=== PATIENT | male | born 1970 | race Caucasian/White ===

== ENCOUNTER 2022-02-01 20:01 | Emergency (ER) | payer MEDICAID ==
[~2022-02-01] VITALS: Ht 188 cm; Wt 69.8 kg
--- NOTE | 2022-02-01 20:29 | NUR ---
PT NOT IN LOBBY
[2022-02-01] MEDS ORDERED: sulfamethoxazole/trimethoprim DS (800/160mg) tablet PO ONE (22:35)
[2022-02-01] MEDS ORDERED: bacitracin 15gm ointment TP ONE (22:35)
[2022-02-01] MEDS ORDERED: SULF1TAB49 PO (23:36)
[2022-02-01 23:59] VITALS: BP 136/79
== END 2022-02-02 00:01 | disposition home or self-care (01) ==
LOC: ER 20:02
DX: L03.116 Cellulitis of left lower limb (principal); F15.90 Other stimulant use, unspecified, uncomplicated
CPT/HCPCS: 73610; 99283

== ENCOUNTER 2022-02-14 13:26 | Emergency (ER) | payer MEDICAID ==
[~2022-02-14] VITALS: Ht 188 cm; Wt 70.5 kg
[~2022-02-14 13:26] MED LIST: LIDOcaine 1% W/epiNEPHrine 1:100,000 20ml vial ONE
[2022-02-14 13:32] VITALS: BP 122/87
[2022-02-14] MEDS ORDERED: bacitracin 15gm ointment TP ONE (14:05)
[2022-02-14] MEDS ORDERED: acetaminophen 325mg tablet PO ONE (14:50)
== END 2022-02-14 15:17 | disposition home or self-care (01) ==
LOC: ER 13:27
DX: S01.01XA Laceration without foreign body of scalp, initial encounter (principal); F15.90 Other stimulant use, unspecified, uncomplicated; Z88.0 Allergy status to penicillin; W22.8XXA Striking against or struck by other objects, initial encounter; Y93.89 Activity, other specified; Y92.89 Other specified places as the place of occurrence of the external cause; Y99.8 Other external cause status
CPT/HCPCS: 12002; 99283; J3490

== ENCOUNTER 2022-03-11 23:21 | Emergency (ER) | payer MEDICAID ==
[~2022-03-11] VITALS: Ht 188 cm; Wt 67.0 kg
[2022-03-12] MEDS ORDERED: clindamycin 150mg capsule PO ONE
[2022-03-12] MEDS ORDERED: CLIN300C71 PO (00:01)
[2022-03-12 00:17] VITALS: BP 137/88
== END 2022-03-12 00:22 | disposition home or self-care (01) ==
LOC: ER 23:21
DX: S01.01XD Laceration without foreign body of scalp, subsequent encounter (principal); L03.119 Cellulitis of unspecified part of limb; F15.90 Other stimulant use, unspecified, uncomplicated; Z48.02 Encounter for removal of sutures; Z59.00 Homelessness unspecified; Z79.2 Long term (current) use of antibiotics; X58.XXXD Exposure to other specified factors, subsequent encounter
CPT/HCPCS: 99283

== ENCOUNTER 2022-03-29 17:26 | Emergency (ER) | payer MEDICAID ==
[~2022-03-29] VITALS: Ht 188 cm; Wt 68.2 kg
[2022-03-29 17:54] VITALS: BP 122/91
--- NOTE | 2022-03-29 18:44 | NUR ---
ULTRASOUND PAGED AT [id number]
[2022-03-29 19:07] LABS: BASOPHILS % (AUTO) 0.5 % (0-1); EOSINOPHILS # (AUTO) 0.2 X10'3 (0-0.9); EOSINOPHILS % (AUTO) 3.4 % (0-6); HEMATOCRIT 42.5 % (42.0-52.0); LYMPHOCYTES # (AUTO) 1.7 X10'3 (1.1-4.8); LYMPHOCYTES % (AUTO) 23.9 % (21-51); MEAN CORPUSCULAR HEMOGLOBIN 29.3 PG (27.0-31.0); MEAN CORPUSCULAR HGB CONC 32.8 g/dL (33.0-36.5); MEAN CORPUSCULAR VOLUME 89.3 FL (78-98); MEAN PLATELET VOLUME 7.2 FL (7.4-10.4); MONOCYTES # (AUTO) 0.6 X10'3 (0-0.9); NEUTROPHILS # (AUTO) 4.5 X10'3 (1.8-7.7); NEUTROPHILS % (AUTO) 64.2 % (42-75); PLATELET COUNT 265 X10'3 (140-440); RED BLOOD COUNT 4.76 X10'6 (4.70-6.10); RED CELL DISTRIBUTION WIDTH 14.7 % (11.5-14.5)
--- NOTE | 2022-03-29 19:18 | NUR ---
Ultrasound at bedside.
[2022-03-29 19:19] LABS: ALANINE AMINOTRANSFERASE 55 U/L (12-78); ALBUMIN 3.5 G/DL (3.4-5.0); ALBUMIN/GLOBULIN RATIO 0.8 (1.1-1.5); ALKALINE PHOSPHATASE 64 IU/L (46-116); ANION GAP 6 (8-16); ASPARTATE AMINO TRANSFERASE 30 U/L (10-37); BILIRUBIN,TOTAL 0.3 MG/DL (0.1-1.0); BLOOD UREA NITROGEN 22 MG/DL (7-18); BUN/CREATININE RATIO 27.8 (5.4-32.0); CALCIUM 8.7 MG/DL (8.5-10.1); CHLORIDE 105 MMOL/L (99-107); CREATININE 0.79 MG/DL (0.60-1.10); GLUCOSE 113 MG/DL (70-104); LIPASE 96 U/L (73-393); SODIUM 139 MMOL/L (135-145); TOTAL CARBON DIOXIDE 27.8 MMOL/L (24-32); TOTAL PROTEIN 7.8 G/DL (6.4-8.2); eGFR > 90 ML/MIN
[2022-03-29] MEDS ORDERED: IODIXANOL 270 MG/ML INFUS..BTL 100ML inj. IV ONE (19:27)
[2022-03-29] MEDS ORDERED: ondansetron 4mg rapidly disintigrating tab PO ONE (19:35)
[2022-03-29] MEDS ORDERED: ketorolac tromethamine 15mg/ml inj. IM ONE (19:35)
[2022-03-29] MEDS ORDERED: sulfamethoxazole/trimethoprim DS (800/160mg) tablet PO ONE (19:35)
[2022-03-29] MEDS ORDERED: HYDROcodone/acetaminophen 5mg/325mg tablet PO ONE (19:35)
[2022-03-29] MEDS ORDERED: ONDA4TAB12 PO (20:19)
[2022-03-29] MEDS ORDERED: HYDR-3965 PO (20:19)
[2022-03-29] MEDS ORDERED: LEVO500T90 PO (20:19)
[2022-03-29 20:27] LABS: CLARITY,URINE CLEAR (Clear); COLOR,URINE YELLOW (Yellow); GLUCOSE, URINE NEGATIVE (Neg); KETONES,URINE NEGATIVE (Neg); LEUKOCYTE ESTERASE ,URINE NEGATIVE (Neg); NITRITES, URINE NEGATIVE (Neg); OCCULT BLOOD,URINE NEGATIVE (Neg); PROTEIN,URINE NEGATIVE (Neg); UROBILINOGEN,URINE 0.2 E.U/dL (0.2-1.0)
[2022-03-29 20:36] LABS: UA COLLECTION TYPE CLN CATCH MIDSTREAM
== END 2022-03-29 20:31 | disposition home or self-care (01) ==
LOC: ER 17:27
DX: N45.1 Epididymitis (principal); F15.90 Other stimulant use, unspecified, uncomplicated; Z59.00 Homelessness unspecified; Z79.899 Other long term (current) drug therapy
CPT/HCPCS: 36415; 74177; 76870; 80053; 81003; 83690; 85025; 93976; 96372; 99285; J1885; Q9967

== ENCOUNTER 2023-01-10 20:43 | Emergency (ER) | payer MEDICAID ==
[~2023-01-10] VITALS: Ht 188 cm; Wt 68.0 kg
[~2023-01-10 20:43] MED LIST changes: -LIDOcaine 1% W/epiNEPHrine 1:100,000 20ml vial ONE; +ONDA4TAB12 PO
[2023-01-11] MEDS ORDERED: DOXYCYCLINE 100MG CAPSULE PO STA (00:20)
[2023-01-11] MEDS ORDERED: bacitracin 15gm ointment TP ONE (00:20)
[2023-01-11] MEDS ORDERED: DOXY-1 PO (00:22)
[2023-01-11 00:59] VITALS: BP 135/75
== END 2023-01-11 01:00 | disposition home or self-care (01) ==
LOC: ER 20:44
DX: L03.113 Cellulitis of right upper limb (principal); F15.10 Other stimulant abuse, uncomplicated; Z59.00 Homelessness unspecified; Z88.0 Allergy status to penicillin; Z79.899 Other long term (current) drug therapy
CPT/HCPCS: 99283

== ENCOUNTER 2023-06-25 17:25 | Emergency (ER) | payer MEDICAID ==
[~2023-06-25] VITALS: Ht 188 cm; Wt 74.6 kg
[2023-06-25 17:30] VITALS: BP 109/61; PULSE 76; RESP 16; TEMP 98.5; O2SAT 99
[2023-06-25] MEDS ORDERED: SULF1TAB49 PO (20:05)
[2023-06-25] MEDS ORDERED: IBUP-1984 PO (20:05)
== END 2023-06-25 20:14 | disposition home or self-care (01) ==
LOC: ER 17:25
DX: M25.551 Pain in right hip (principal); M54.50 Low back pain, unspecified; M70.71 Other bursitis of hip, right hip; R22.41 Localized swelling, mass and lump, right lower limb; Z86.14 Personal history of Methicillin resistant Staphylococcus aureus infection; F15.90 Other stimulant use, unspecified, uncomplicated; Z59.00 Homelessness unspecified; Z79.899 Other long term (current) drug therapy
CPT/HCPCS: 73502; 99283

== ENCOUNTER 2025-06-17 20:42 | Emergency (ER) | payer MEDICAID ==
[~2025-06-17] VITALS: Ht 188 cm; Wt 74.2 kg
[~2025-06-17 20:42] MED LIST changes: +ONDA-243 PO; -ONDA4TAB12 PO
[2025-06-17 21:27] VITALS: TEMP 98.6
--- NOTE | 2025-06-18 00:30 | Physician Documentation ---
History of Present Illness ~ Chief Complaint: Abscess Stated Complaint: LEG PAIN Time Seen by MD: 00:28 Primary Medical Doctor: ALVIN CHANEL [facility] Patient presents to the emergency room for evaluation of left lower extremity pain and swelling onset three days ago. He states it started with an abrasion he believes it may be infected. He is unsure of his tetanus. Tetanus Within 5 Years: Yes Medication Reconciliation Allergies: Coded Allergies: No Known Allergies (Unverified , 06/17/25) Scheduled ONDANSETRON ODT 4mg tablet (Ondansetron Odt), 1 TABLET PO Q6H Past Medical History Past Medical History: MRSA Abscess Past Surgical History: noncontributory Drug Use: methamphetamine Lives In: Homeless Review of Systems ROS All review of systems negative except as per HPI Physical Exam Vital Signs: Temperature: 98.6, Source: Temporal, Heart Rate: 76, Respiratory Rate: 16, BP: 134/85, Pulse Oximetry: 98, Weight: 74.200 Physical Exam General: Patient is awake, alert, oriented x4 in no acute distress Head: Normocephalic and atraumatic. Eyes: Conjunctival normal. EOMI. PERRL. ENT: Mucous membranes moist. Neck: Supple, trachea is midline. Chest: Clear to auscultation bilaterally without rales, rhonchi, or wheezes. There is no accessory muscle use or retractions. Cardiac: RRR without murmurs, gallops, or rubs. Extremities: Cellulitis with an abrasion noted to left lower extremity from just below the knee to proximal ankle. Progress Results/Orders Results/Orders Orders - BHANU HICKS MD Naproxen Tablet (Naprosyn Tablet) (06/18/25 00:35) Ondansetron Disint. Tablet (Zofran Odt T (06/18/25 00:35) Sulfamethox/Trimetho. Ds Tab (Septra Ds (06/18/25 00:35) Vital Signs 06/17/25 06/18/25 21:27 00:07 Temp 98.6 Pulse 104 76 Resp 15 16 B/P (MAP) 151/88 134/85 (101) Pulse Ox 99 98 Medical Decision Making Findings Patient presented to the emergency room for evaluation of left lower extremity as per HPI. Differentials include but are not limited to cellulitis, abscess, DVT, necrotizing fasciitis. Symptoms history and physical exam consistent with cellulitis and we will treat as such. Departure Disposition: HOME / SELF CARE / HOMELESS Impression: Primary Impression: Cellulitis Condition: Stable Discharge Instructions: Cellulitis, Adult, [id number] Referrals: NO PRIMARY CARE PROVIDER (PCP) Prescriptions Sulfamethoxazole/Trimethoprim (Bactrim Ds Tablet) 800 Mg-160 Mg Tablet 1 TAB PO Q12H for 10 Days, #20 TAB Prov: BHANU HICKS MD 06/18/25 Education Educated: Patient Educated regarding: diagnosis, treatment, need for follow up Signature Scribe Signature: No scribe Attestation: The note accurately reflects work and decisions made by me.Bhanu Hicks MD 06/18/25 00:38 BHANU HICKS MD Jun 18, 2025 00:30
[2025-06-18] MEDS ORDERED: SULF1TAB49 PO (00:37)
[2025-06-18 01:02] VITALS: BP 128/72; PULSE 72; RESP 16; O2SAT 98
[2025-06-18] MEDS: sulfamethoxazole/trimethoprim DS (800/160mg) tablet PO ONE (01:07)
[2025-06-18] MEDS: ondansetron 4mg rapidly disintigrating tab PO ONE (01:07)
[2025-06-18] MEDS: TETanus/Pertussis (Acell)/Diphther VAC/PF (Tdap-Adult) 0.5ml syringe IMVAC ONE (01:08)
[2025-06-19] MEDS ORDERED: IBUP-864 PO (10:45)
[2025-06-19] MEDS ORDERED: SULF1TAB49 PO (10:45)
== END 2025-06-18 01:11 | disposition home or self-care (01) ==
LOC: ER 20:42
DX: L03.116 Cellulitis of left lower limb (principal)
CPT/HCPCS: 90471; 90715; 99284

== ENCOUNTER 2025-06-19 09:58 | Emergency (ER) | payer MEDICAID ==
[~2025-06-19] VITALS: Ht 172.7 cm; Wt 72.7 kg
[~2025-06-19 09:58] MED LIST changes: +SULF1TAB49 PO
[2025-06-19 10:03] VITALS: BP 118/73; PULSE 103; RESP 17; O2SAT 97
[2025-06-19] MEDS ORDERED: IBUP-864 PO (10:45)
[2025-06-19] MEDS ORDERED: SULF1TAB49 PO (10:45)
--- NOTE | 2025-06-19 10:46 | Physician Documentation ---
History of Present Illness ~ Chief Complaint: Wound Stated Complaint: CELLULITIS Time Seen by MD: 10:10 Primary Medical Doctor: ALVIN CHANEL HPI 54-year-old male brought in by ambulance with continued cellulitis which was evaluated and treated on June 17 and was unable to shredder picker his prescription. Patient states the cellulitis is worsening and he needs his antibiotics. No ot her acute concerns Tetanus within 5 years?: Yes Medication Reconciliation Allergies: Coded Allergies: No Known Allergies (Unverified , 06/17/25) Scheduled Ibuprofen (Ibu), 1 TAB PO Q8H ONDANSETRON ODT 4mg tablet (Ondansetron Odt), 1 TABLET PO Q6H Sulfamethoxazole/Trimethoprim (Bactrim Ds Tablet), 1 TAB PO Q12H Sulfamethoxazole/Trimethoprim (Bactrim Ds Tablet), 1 TAB PO Q12H Past Medical History Past Medical History: MRSA Abscess Past Surgical History: noncontributory Drug Use: methamphetamine Lives In: Homeless Review of Systems All Other Systems at this time: Reviewed and Negative Integumentary: Reports: see HPI Physical Exam Vital Signs: Temperature: 98.2, Source: Temporal, Heart Rate: 103, Respiratory Rate: 17, BP: 118/73, Pulse Oximetry: 97, Weight: 72.730 General Appearance: alert, WD/WN, no apparent distress Cardiovascular: normal peripheral pulses, regular rate, rhythm, no edema Respiratory: lungs clear, normal breath sounds, no respiratory distress Chest: no accessory muscle use, chest non-tender Wound Site : Location: Left lower extremity Comment Left lower extremity with erythema and warmth compartments soft distal CMS intact Progress Results/Orders Results/Orders Completed Orders - KENDY PICKETT NP Sulfamethox/Trimetho. Ds Tab (Junra Ds (06/19/25 10:50) Medications Received in ER Medications (Trade) Dose Ordered Sig/Abdiel Route PRN Reason Start Time Stop Time Status Last Admin Dose Admin (Septra DS tab) 2 tab ONCE ONCE PO 06/19/25 10:50 06/19/25 10:51 DC 06/19/25 10:55 2 TAB Vital Signs 06/19/25 06/19/25 10:03 11:02 Temp 98.2 98.2 Pulse 103 Resp 17 B/P (MAP) 118/73 Pulse Ox 97 Medical Decision Making Findings And was unable to shredder picker antibiotics at previous ER visit a dose was given hair and represcribed at a closer pharmacy Departure Time of Disposition: 10:44 Disposition: 01 HOME / SELF CARE / HOMELESS Impression: Primary Impression: Cellulitis Condition: Stable Discharge Instructions: Cellulitis, Adult, [id number] Additional Instructions: Take antibiotics as prescribed this antibiotic was sent to the [facility] on [address]. Follow up with primary care or the [facility] Referrals: NO PRIMARY CARE PROVIDER (PCP) Prescriptions Ibuprofen (Ibu) 800 Mg Tablet 1 TAB PO Q8H for 7 Days, #21 TAB 0 Refills Prov: KENDY PICKETT NP 06/19/25 Sulfamethoxazole/Trimethoprim (Bactrim Ds Tablet) 800 Mg-160 Mg Tablet 1 TAB PO Q12H for 10 Days, #20 TAB Prov: KENDY PICKETT NP 06/19/25 Education Educated: Patient Educated regarding: diagnosis, treatment, need for follow up Signature Scribe Signature: No Scribe Attestation: The note accurately reflects work and decisions made by me.Kendy MERIDA 06/19/25 10:45 KENDY PCIKETT NP Jun 19, 2025 10:46
[2025-06-19] MEDS: sulfamethoxazole/trimethoprim DS (800/160mg) tablet PO ONE (10:55)
[2025-06-19 11:02] VITALS: TEMP 98.2
== END 2025-06-19 11:03 | disposition home or self-care (01) ==
LOC: ER 09:58
DX: L03.115 Cellulitis of right lower limb (principal); F15.90 Other stimulant use, unspecified, uncomplicated
CPT/HCPCS: 99283

== ENCOUNTER 2025-06-22 10:01 | Inpatient (IN) | payer MEDICAID ==
[~2025-06-22] VITALS: Ht 177.8 cm; Wt 84.1 kg
[~2025-06-22 10:01] MED LIST changes: +IBUP-864 PO
--- NOTE | 2025-06-22 11:13 | ELECTROCARDIOGRAPH REPORT ---
[facility] Test Date: 2025-06-22 Test Time: 11:11:38 Pat Name: HANSA DAVIS Department: [facility]-ER Patient ID: [facility]-[id number] Room: Gender: M Contract Admin: : 1970 Requested By: TONY PINEDA Order Number: [id number] Reading MD: Measurements Intervals [place] Rate: 73 P: 90 FL: 152 QRS: 70 QRSD: 97 T: 79 QT: 391 QTc: 431 Interpretive Statements Sinus rhythm Consider left atrial enlargement Probable anteroseptal infarct, old Please click the below link to view image of tracing.
--- NOTE | 2025-06-22 11:29 | RADIOLOGY REPORT ---
EXAM: DI CHEST,SINGLE VIEW Indication: SEPSIS Technique: Single frontal view of the chest was obtained Comparison: None FINDINGS: Lines and Tubes: None Lungs: No focal consolidation. Pleura: No effusion. No pneumothorax. Cardiomediastinal contours: Unremarkable. Atherosclerotic vascular calcifications of the thoracic ao rta are noted. Bones: No acute osseous abnormality. IMPRESSION: No acute cardiopulmonary disease.
[2025-06-22 11:44] LABS: MEAN PLATELET VOLUME 7.1 FL (7.4-10.4); RED CELL DISTRIBUTION WIDTH 14.9 % (11.5-14.5)
[2025-06-22] MEDS: normal saline 1000ML IV soln IVB ONE (11:44)
[2025-06-22] MEDS: piperacillin/tazo 3.375gm/50ml 50 ML IV ONE (11:45)
--- NOTE | 2025-06-22 12:10 | Physician Documentation ---
History of Present Illness ~ Chief Complaint: Leg Pain Stated Complaint: L LEG PAIN Time Seen by MD: 10:58 Primary Medical Doctor: ALVIN CHANEL Source: patient Mode of Arrival: Ambulatory Exam Limitations: no limitations HPI Chief Complaint: Left leg pain and swelling Caveat: None Independent Historians: None History of Present Illness: Patient is a 54-year-old man who has had a couple of ER visits this last week for an infected left leg. Patient returns for the 3rd time. Patient has been on Bactrim. Patient's pain is 7/10. Patient is unable to describe the pain. Pain is worse with walking and touch. Review of systems: All systems were reviewed and are negative except for what is indicated in the history of present illness. Past Medical History: MRSA abscess and cellulitis Past Surgical History: None Social History: Medications: Reviewed as documented Nursing Notes Allergies: Reviewed as documented in Nursing Notes Mervat cardosoin 5 years: Yes Medication Reconciliation Allergies: Coded Allergies: No Known Allergies (Unverified , 06/22/25) Scheduled Ibuprofen (Ibu), 1 TAB PO Q8H ONDANSETRON ODT 4mg tablet (Ondansetron Odt), 1 TABLET PO Q6H Sulfamethoxazole/Trimethoprim (Bactrim Ds Tablet), 1 TAB PO Q12H Sulfamethoxazole/Trimethoprim (Bactrim Ds Tablet), 1 TAB PO Q12H Past Medical History Past Medical History: MRSA Abscess Past Surgical History: noncontributory Drug Use: methamphetamine Lives In: Homeless Review of Systems All Other Systems at this time: Reviewed and Negative ROS Patient denies any other acute symptoms other than above. All other systems are negative Physical Exam Vital Signs: RN Vital Signs have been reviewed: Yes, Temperature: 98.1, Source: Temporal, Heart Rate: 83, Respiratory Rate: 19, BP: 118/66, Pulse Oximetry: 99, Weight: 84.090 Oxygen Flow Rate: 0 Physical Exam General Appearance: Mild distress HEENT: Normal OP, moist oral mucosa, PERRL, EOMI Neck: supple, normal ROM, trachea midline Pulmonary: No respiratory distress, CTA, BS equal Cardiac: RRR, no murmur, rub or gallop, GI: nondistended, soft, nontender, normal bowel sounds, no guarding, no rebound Extremities: Left leg is circumferentially swollen violaceous red and weeping, erythema and hot to touch, ankle bracelet on the left ankle Skin: intact, dry, warm, no rashes Neuro: AAOx3, speech is clear, no focal motor weakness Psych: normal affect, good eye contact, no apparent hallucination, normal speech Progress Results/Orders Results/Orders Orders - TONY PINEDA MD Urinalysis, Cult If Indicated (06/22/25 11:06) Culture Blood (06/22/25 11:06) Chest,Single View (06/22/25 11:06) Drug Screen, Urine (06/22/25 11:06) Page Hospitalist (06/22/25 12:08) Fill Out Med Reconciliation (06/22/25 12:08) Completed Orders - TONY PINEDA MD Electrocardiogram (06/22/25 11:06) Cbc/Diff (06/22/25 11:06) MG (06/22/25 11:06) Chest,Single View (06/22/25 11:06) Procalcitonin (06/22/25 11:06) Piperacillin/Tazo 3.375gm/50ml (Zosyn 3. (06/22/25 11:10) Lacticsepsis (06/22/25 11:06) Ethanol (06/22/25 11:06) Normal Saline 1000ml (0.9% Sodium Chlori (06/22/25 11:10) CMP (06/22/25 11:07) PBNP (06/22/25 11:33) Medications Received in ER Medications (Trade) Dose Ordered Sig/Abdiel Route PRN Reason Start Time Stop Time Status Last Admin Dose Admin Piperacillin/ Tazobactam/ Dextrose 50 ml @ 100 mls/hr ONCE ONCE IV 06/22/25 11:10 06/22/25 11:39 DC 06/22/25 11:45 100 MLS/HR (0.9% sodium chloride (NS) 1000ml IV soln) 1,000 ml ONCE ONCE IVB 06/22/25 11:10 06/22/25 11:11 DC 06/22/25 11:44 1,000 ML Sodium Chloride 1,000 ml @ 100 mls/hr Q10H IV 06/22/25 12:45 06/22/25 13:12 100 MLS/HR Vital Signs 06/22/25 06/22/2525 10:03 10:25 11:54 Temp 98.1 Pulse 89 83 Resp 16 16 19 B/P (MAP) 141/84 118/66 (83) Pulse Ox 99 99 O2 Flow Rate 0 0 Laboratory Tests Test 06/22/25 11:24 06/22/25 11:33 Lactic Acid Level 2.5 H White Blood Count 16.8 H Red Blood Count 5.10 Hemoglobin 15.1 Hematocrit 45.1 Mean Corpuscular Volume 88.4 Mean Corpuscular Hemoglobin 29.6 Mean Corpuscular Hemoglobin Concent 33.5 Red Cell Distribution Width 14.9 H Platelet Count 391 Mean Platelet Volume 7.1 L Neutrophils (%) (Auto) 85.6 H Lymphocytes (%) (Auto) 5.3 L Monocytes (%) (Auto) 8.1 Eosinophils (%) (Auto) 0.8 Basophils (%) (Auto) 0.2 Neutrophils # (Auto) 14.4 H Lymphocytes # (Auto) 0.9 L Monocytes # (Auto) 1.4 H Eosinophils # (Auto) 0.1 Basophils # (Auto) 0.0 CBC Comment Sodium Level 133 L Potassium Level 3.8 Chloride Level 97 L Carbon Dioxide Level 25.7 Anion Gap 10 Blood Urea Nitrogen 25 H Creatinine 1.29 H Estimated GFR/1.73 m2 58 BUN/Creatinine Ratio 19.4 Glucose Level 104 Calcium Level 9.3 Magnesium Level 2.4 Total Bilirubin 0.7 Aspartate Amino Transf (AST/SGOT) 45 H Alanine Aminotransferase (ALT/SGPT) 38 Alkaline Phosphatase 85 Pro-B-Type Natriuretic Peptide 132 H Total Protein 8.8 H Albumin 3.1 L Globulin 5.7 H Albumin/Globulin Ratio 0.5 L Procalcitonin 0.94 H Chemistry Comments Ethyl Alcohol Level < 10 Medical Decision Making Findings Differential diagnosis includes but is not limited to: Cellulitis Laboratory data independent interpretation: CBC: Leukocytosis 16.8 CMP: Unremarkable, creatinine elevated at 1.29 Toxicology: Lactic acid: 2.5 Procalcitonin: 0.94 Emergency department course/medical decision-making: Patient presents with continued cellulitis and outpatient failure with ant ibiotics. Patient will require IV antibiotics. IV vanco will be started. Patient will require admission. Patient is afebrile and hemodynamically stable. Consultation/communications: 12:45 p.m.: Case discussed with our hospitalist Dr. Oliveros. He will evaluate the patient for admission. Departure Time of Disposition: 12:07 Admitted to Inpatient Unit: to hospitalist Admission Level of Care: Med/Surg Impression: Primary Impression: Cellulitis of left leg Education Educated: Patient Educated regarding: diagnosis, treatment Signature Scribe Signature: No scribe Attestation: No scribe TONY PINEDA MD Jun 22, 2025 12:10
[2025-06-22 12:21] LABS: CREATININE 1.29 MG/DL (0.60-1.10); TOTAL CARBON DIOXIDE 25.7 MMOL/L (24-32); eCRCL 67 ML/MIN; eGFR 58 ML/MIN
[2025-06-22 12:29] LABS: ETHANOL < 10 MG/DL (<10)
[2025-06-22] MEDS ORDERED: magnesium sulf-water 2g/50mL 50 ML IV PRN (12:45)
[2025-06-22] MEDS ORDERED: potassium Cl 40MEQ/1/2NS 520ml 520 ML IV PRN (12:45)
[2025-06-22] MEDS ORDERED: magnesium sulf-water 4G/100mL 100 ML IV PRN (12:45)
[2025-06-22] MEDS ORDERED: potassium Cl 20 mEq SR tablet PO PRN ×2 (12:45)
[2025-06-22] MEDS: normal saline 1000ml 1,000 ML IV SCH (13:12)
[2025-06-22 13:18] LABS: PRO BRAIN NATRIURETIC PEPTIDE 132 PG/ML (0-125)
[2025-06-22] MEDS ORDERED: NO HOME MEDS (13:58)
[2025-06-22 14:02] LABS: LEUKOCYTE ESTERASE ,URINE NEGATIVE (Neg); NITRITES, URINE NEGATIVE (Neg); OCCULT BLOOD,URINE NEGATIVE (Neg)
[2025-06-22 14:15] LABS: UA COLLECTION TYPE URINAL; URINE AMPHETAMINE SCREEN POSITIVE (Neg); URINE BARBITUATE SCREEN NEGATIVE (Neg); URINE BENZODIAZEPINES SCREEN NEGATIVE (Neg); URINE CANNABINOID SCREEN NEGATIVE (Neg); URINE COCAINE SCREEN NEGATIVE (Neg); URINE METHADONE SCREEN NEGATIVE (Neg); URINE OPIATE SCREEN NEGATIVE (Neg); URINE PHENCYCLIDINE SCREEN NEGATIVE (Neg)
[2025-06-22 14:17] LABS: CELLULAR CAST 0-4 /LPF (NEGATIVE); SQUAMOUS EPITHELIAL CELL,UR FEW /LPF (FEW)
[2025-06-22] MEDS: HYDROcodone/acetaminophen 10/325mg tab PO PRN (14:49)
[2025-06-22] MEDS: normal saline 1000ml 1,000 ML IV ONE (14:50)
[2025-06-22 15:10] VITALS: BP 126/75; PULSE 86; RESP 16; TEMP 98.7; O2SAT 99
[2025-06-22] MEDS: nicotine 14mg patch - 24hr TD SCH (15:27)
[2025-06-22] MEDS: vancomycin/NS 1 GM ADD-VANTAGE 250 ML IV SCH (15:35)
--- NOTE | 2025-06-22 16:00 | VASCULAR REPORT ---
Left lower extremity venous Doppler INDICATION: Pain and swelling TECHNIQUE: Duplex venous sonography was performed with real-time and flow sensitive images submitted for evaluation. FINDINGS: Normal phasic venous flow. Veins are fully compressible. No filling defects. IMPRESSION: 1. No evidence of deep vein thrombosis left lower extremity.. 2. Incidental note made of an enlarged left inguinal node measuring 1.7 x 1.2 cm
--- NOTE | 2025-06-22 17:25 | HISTORY AND PHYSICAL-Residence ---
History & Physical Providers to Resident Creating Document: ANNALISA GARCIA RES ~ History of Present Illness Primary Medical Doctor: ALVIN CHANEL Reason for Admit\\Complaint: Left leg cellulitis History of Present Illness 54-year-old homeless male with history of substance use disorder (meth IV) presented to the ED with chief complaints of left lower extremity pain and swelling for the past six days. Patient states that his swelling started six days ago as a "spot on the knee with no bleeding". He has been here in the ER couple of times and was discharged with Bactrim. He states that he went to [place] twice, initially could not pick it up and eventually guarded three days prior to arrival to the ED. he states that his symptoms kept getting worse and the swelling was getting bigger. He has associated fever and chills. He also complains of orthopnea, nausea and vomiting. Pain in the left lower extremity 10. Denies chest pain, dizziness, headaches, shortness of breath, diarrhea or constipation. He states that he has a primary care provider Dr. Phillips. He smokes half a pack of cigarettes a day last smoke was yesterday. Uses meth IV and also smokes. Discussed advanced care directives and he wishes to be a full code. Allergies: Coded Allergies: No Known Allergies (Unverified , 06/22/25) Home Medications Home Medications Active Reported No Home Medications (Home Med List) Each Past Medical History Past Medical History None Past Surgical History Surgical History Comment Left knee cyst removal hand surgery Family History Family History: Patient reports no known family medical history. Past Social History Drug Use: Methamphetamine Lives In: Homeless ROS All Other Systems: Reviewed and Negative Constitutional: Reports: chills, fever Eyes: Reports: no symptoms reported ENT: Reports: no symptoms reported Respiratory: Reports: no symptoms reported Cardiovascular Orthopnea Gastrointestinal: Reports: no symptoms reported Genitourinary: Reports: no symptoms reported Neurological: Reports: no symptoms reported Musculoskeletal: Reports: pain, swelling Musculoskeletal Left lower extremity pain and swelling Exam Vitals: Vital Signs Date Time Temp Pulse Resp B/P (MAP) Pulse Ox O2 Delivery O2 Flow Rate FiO2 06/22/25 15:54 Room Air 0.0 06/22/25 15:10 98.7 86 16 126/75 (92) 99 General: General: Awake and Alert, no acute distress. HEENT: Conjunctiva pink, Sclera clear, Mucus Membranes dry. Neck: Supple without masses and tenderness. Resp: Unlabored. Diminished breath sounds bilaterally Heart: Regular rhythm, normal S1 and S2, no rub, murmur or gallop. Abdomen: Soft and non tender no organomegaly. Normal bowel sounds x4 quadrant normoactive. No guarding or rigidity. Extremities: Left leg swelling 2+, erythema and edema. Left lateral leg have superficial blisters with active foul-smelling discharge. FLIGHT/TRANSPORT NURSE: No gross motor or sensory abnormalities. Skin: Warm and Dry. Diagnostic Data Last Recorded Lab Results: 06/22/25 1133 06/22/25 1133 Advance Care Planning Advanced Care plannin - 30 Minutes Additional Plan 54-year-old homeless male with history of substance use disorder (meth IV) presented to the ED with chief complaints of left lower extremity pain and swelling for the past six days. Left leg cellulitis Failed outpatient antibiotic therapy (Bactrim) Leukocytosis WBCs 16.8, procalcitonin 0.94 and lactic acid 2.5 Aggressive fluid resuscitation 2 L fluid bolus followed by normal saline at 100 mL/hour Received IV Zosyn in the ED Started IV vanc and ceftriaxone Wound care consulted Follow up with blood and Wound cultures, CT lower extremity and vascular ultrasound UTI DAVID likely secondary to vasomotor nephropathy Continue fluid resuscitation IV antibiotics ceftriaxone 1 g IV daily, follow up with cultures Orthopnea He does complain of orthopnea, has mildly elevated BNP 132 He does not have any signs of fluid overload Ordered echo to evaluate for meth induced cardiomyopathy, follow up with results Substance use disorder Methamphetamine abuse Active smoking half a pack a day Substance use navigator consulted, appreciate recommendations Nicotine patch Code Status: Full code DVT prophylaxis: Heparin Analgesia/sedation: [place]/morphine Line/tube: PIV GI prophylaxis: None Nutrition: Regular diet Prognosis: Guarded Disposition: Continue medical management. Annalisa Garcia MD. IM Resident PGY-3 Date of Service: Jun 22, 2025 Billing Provider: MARK FRANCISCO MD, ELIZABETH, RES Jun 22, 2025 17:25
--- NOTE | 2025-06-22 17:55 | RADIOLOGY REPORT ---
Indication: LEFT LEG CELLULITIS Technique: CT axial images of the left lower extremity from the left knee to the left ankle are obtai kojo without contrast. Coronal and sagittal reformats were obtained. Radiation Dose Information: CTDI volume is 17 mGy. Dose-length product is 1099 mGy*cm Comparison: None FINDINGS/IMPRESSION: There is extensive /diffuse left lower extremity soft tissue edema and stranding from the distal left thigh to the left ankle. This is most pronounced along the anterolateral aspect. This could be seco ndary to cellulitis, inflammatory etiologies. Correlate clinically. There is possible loculated collection along the anterior aspect of the proximal tibiam / fibula subc utaneous tissues measuring 3.3 x 1.5 cm, axial image 83/253. Considerations include phlegmonous blunt es, abscess. CT with contrast of the lower extremities can be obtained to further characterize. No acute fracture. No osseous erosion present.
[2025-06-22 18:00] VITALS: BP 110/65; PULSE 64; RESP 16; TEMP 98.8; O2SAT 98
[2025-06-22] MEDS: heparin, porcine 5000 units/ml vial SQ SCH (19:38)
[2025-06-22] MEDS: K and/or MAG REPLACEMENT MC SCH (19:47)
[2025-06-22 20:10] VITALS: RESP 16
[2025-06-22 22:00] VITALS: BP 92/57; PULSE 88; RESP 18; TEMP 98.4; O2SAT 95
[2025-06-23 05:40] LABS: MEAN PLATELET VOLUME 8.0 FL (7.4-10.4); RED CELL DISTRIBUTION WIDTH 14.7 % (11.5-14.5)
[2025-06-23 05:53] LABS: INR 1.1 INR
[2025-06-23 05:57] LABS: CREATININE 0.91 MG/DL (0.60-1.10); PHOSPHORUS 2.6 MG/DL (2.3-4.5); TOTAL CARBON DIOXIDE 25.8 MMOL/L (24-32); eCRCL 95 ML/MIN; eGFR 86 ML/MIN
[2025-06-23 06:00] VITALS: BP 118/66; PULSE 69; RESP 18; TEMP 98.5; O2SAT 100
[2025-06-23] MEDS: CefTRIAXone/D5W-Rocephin 1gm 50 ML IV SCH (08:13)
[2025-06-23 10:00] VITALS: BP 101/54; PULSE 83; RESP 12; TEMP 98.3; O2SAT 98
--- NOTE | 2025-06-23 11:15 | CONSULTATION REPORT ---
History of Present Illness Providers to CC ~ Reason for Admit\Admit Dx: Left leg cellulitis Refering MD: Dr Wright History of Present Illness 54 yr old homeless man with 3-10 days of left leg pain, no recalled injury. has been to the ER several times, was not able to get his prescribed abx. C/O leg pain below the knee Allergies: Coded Allergies: No Known Allergies (Unverified , 06/22/25) Home Medications Home Medications Active Reported No Home Medications (Home Med List) Each Past Family History Family History: Patient reports no known family medical history. Physical Exam Last Vital Signs Recorded: Temperature: 98.3, Source: Oral, Heart Rate: 83, Respiratory Rate: 12, BP: 101/54, Pulse Oximetry: 98, Weight: 84.090 General Appearance: alert Extremities LLE edema and erythema from knee to ankle where he is wearing an ankle monitoring device, it is getting tight due to swelling. Moving knee and ankle well, Results Results/Orders Results/Orders imaging suspicious for possible fluid in the SQ tissues Diagram Lab Result Diagram: 06/23/25 0426 06/23/25 0426 Assessment/Plan Problems/Diagnosis: (1) Cellulitis of left leg Additional Plan plan to observe over the next 24 hours MACHO STARKS Jr., MD Jun 23, 2025 11:15
--- NOTE | 2025-06-23 18:11 | PROGRESS NOTE- Residence ---
Progress Note - Resident Providers to CC Resident Creating Document: ANNALISA GARCIA RES ~ Antibiotic Timeout Antibiotic Ordered?: Yes Subjective Patient seen and examined at bedside. Continues to have pain and swelling in the left lower extremity. Wound care has seen him and leg wrapped in clean dressing. No new concerns or complaints. Objective Vital Signs Date Time Temp Pulse Resp B/P (MAP) Pulse Ox O2 Delivery O2 Flow Rate FiO2 06/23/25 16:33 15 06/23/25 10:00 98.3 83 101/54 (70) 98 Room Air 06/22/25 20:10 0.0 Result Diagram: 06/23/2542506/23/25425 General: Awake and Alert, no acute distress. HEENT: Conjunctiva pink, Sclera clear, Mucus Membranes dry. Neck: Supple without masses and tenderness. Resp: Unlabored. Diminished breath sounds bilaterally Heart: Regular rhythm, normal S1 and S2, no rub, murmur or gallop. Abdomen: Soft and non tender no organomegaly. Normal bowel sounds x4 quadrant normoactive. No guarding or rigidity. Extremities: Left leg swelling 2+, erythema and edema. Left lateral leg have superficial blisters with active foul-smelling discharge. MUSEUM SPECIALIST: No gross motor or sensory abnormalities. Skin: Warm and Dry. Coagulation Studies Laboratory Tests Test 06/23/25 04:26 Prothrombin Time 11.6 SECONDS (9.0-12.0) INR International Normalized Ratio 1.1 INR Coagulation Comments Assessment Assessment 54-year-old homeless male with history of substance use disorder (meth IV) presented to the ED with chief complaints of left lower extremity pain and swelling for the past six days. Plan Plan Left leg cellulitis Failed outpatient antibiotic therapy (Bactrim) Leukocytosis WBCs 16.8, procalcitonin 0.94 and lactic acid 2.5 Aggressive fluid resuscitation 2 L fluid bolus followed by normal saline at 100 mL/hour Received IV Zosyn in the ED Started IV vanc and ceftriaxone Wound care consulted Follow up with blood and Wound cultures, CT lower extremity and vascular ultrasound 06/23/2025 CT of the left lower extremity findings positive for cellulitis and possible loculated collection concerning for phlegmon versus abscess Dr. Larios orthopedics has been consulted, recommended medical management if the swelling continues to get worse he will require I&D UTI DAVID likely secondary to vasomotor nephropathy Continue fluid resuscitation IV antibiotics ceftriaxone 1 g IV daily, follow up with cultures Orthopnea He does complain of orthopnea, has mildly elevated BNP 132 He does not have any signs of fluid overload Ordered echo to evaluate for meth induced cardiomyopathy, follow up with results 06/23/2025 Preliminary report EF is 60-65 RVSP 37 mmHg Substance use disorder Methamphetamine abuse Active smoking half a pack a day Substance use navigator consulted, appreciate recommendations Nicotine patch Code Status: Full code DVT prophylaxis: Heparin Analgesia/sedation: [place]/morphine Line/tube: PIV GI prophylaxis: None Nutrition: Regular diet Prognosis: Guarded Disposition: Continue medical management. Annalisa Garcia MD. IM Resident PGY-3 Date of Service: Jun 23, 2025 Billing Provider: MARK FRANCISCO MD, ELIZABETH, RES Jun 23, 2025 18:11
[2025-06-23 18:30] VITALS: BP 104/63; PULSE 82; RESP 14; TEMP 100.5; O2SAT 100
--- NOTE | 2025-06-23 18:33 | CARDIOLOGY REPORT ---
APPROVED REPORT EXAM: Comprehensive 2D, Doppler, and color-flow Echocardiogram. 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 143.2 cm/s AoV VTI 23.6 cm AO Peak GR. 8.2 mmHg AO Mean GR. 5 mmHg LVOT VTI 19.72 cm LVOT Peak Prashanth. 129.8 cm/s PEÑA(VTI)/BSA 2.63 cm2/m2 PEÑA (VTI) 2.63 cm2 Mitral Valve MV E Velocity 82.5 cm/s MV Peak Gr. 3 mmHg MV DECEL TIME 228 ms MV A Velocity 65.6 cm/s MV PHT 68 ms E/A Ratio 1.3 MVA (PHT) 3.24 cm2 MV VMax90.9 cm/s TDI Lateral E' P. V10.74 cm/s E/Lateral E' 7.7 Tricuspid Valve TR P. Velocity 258 cm/s RAP ESTIMATE 10 mmHg TR Peak Gr. 27 mmHg RVSP 37 mmHg Pulmonary Vein S1 Velocity 76.6 cm/s D2 Velocity 66.0 cm/s PVa Zatfioen52.5 cm/s PVa [id number] msec LEFT VENTRICLE Normal LV size and wall thickness. Overall systolic function is normal. LVEF is 60-65%. RIGHT VENTRICLE RV is normal size and function. Elevated right heart pressures with an RVSP of 37 mmH ATRIA Left atrium is mildly dilated. AORTIC VALVE Trileaflet AV appears mildly sclerotic without stenosis. No insufficiency. TDS due to poor doppler an gles. MITRAL VALVE Mild MV annular calcification without stenosis. Trace regurgitation. TRICUSPID VALVE TV appears structurally normal with trace regurgitation. PULMONIC VALVE Normal PV without stenosis, physiologic insufficiency. GREAT VESSELS The aortic root is normal in size. IVC is dilated and collapses less than 50% with inspiration. PERICARDIUM Normal pericardium. No effusion. Other Information Study Quality: Adequate but measurements are averaged due to TDS. Conclusion Normal LV size and wall thickness. Overall systolic function is normal. LVEF is 60-65%. RV is normal size and function. Elevated right heart pressures with an RVSP of 37 mmHg. Left atrium is mildly dilated. Trileaflet AV appears mildly sclerotic without stenosis. No insufficiency. TDS due to poor doppler a ngles. Mild MV annular calcification without stenosis. Trace regurgitation. TV appears structurally normal with trace regurgitation. Normal pericardium. No effusion.
[2025-06-23 20:00] VITALS: RESP 14; O2SAT 100
[2025-06-23 22:00] VITALS: BP 105/61; PULSE 68; RESP 19; TEMP 97.9; O2SAT 100
[2025-06-24] MEDS: VANCOMYCIN LEVEL IV ONE (03:01)
[2025-06-24 04:33] LABS: MEAN PLATELET VOLUME 7.7 FL (7.4-10.4); RED CELL DISTRIBUTION WIDTH 15.1 % (11.5-14.5)
[2025-06-24 04:50] LABS: CREATININE 0.69 MG/DL (0.60-1.10); PHOSPHORUS 3.1 MG/DL (2.3-4.5); TOTAL CARBON DIOXIDE 26.3 MMOL/L (24-32); eCRCL 125 ML/MIN; eGFR > 90 ML/MIN
[2025-06-24 06:00] VITALS: BP 118/76; PULSE 65; RESP 16; TEMP 98.1; O2SAT 99
[2025-06-24 10:00] VITALS: BP 94/47; PULSE 79; RESP 16; TEMP 98.6; O2SAT 97
[2025-06-24] MEDS: VANCOMYCIN/WATER FOR INJ (PEG) 1.5GM/300 ML IVPB IV SCH (15:46)
--- NOTE | 2025-06-24 17:31 | PROGRESS NOTE- Residence ---
Progress Note - Resident Providers to CC Resident Creating Document: ANNALISA GARCIA RES ~ Antibiotic Timeout Antibiotic Ordered?: Yes Subjective Patient seen and examined at bedside. Continues to have pain and swelling in the left lower extremity. Wound care consulted and following. No new concerns or complaints. Objective Vital Signs Date Time Temp Pulse Resp B/P (MAP) Pulse Ox O2 Delivery O2 Flow Rate FiO2 06/24/25 10:00 98.6 79 16 94/47 (63) 97 Room Air 06/22/25 20:10 0.0 Result Diagram: 06/24/25 0230 06/24/25 0230 General: Awake and Alert, no acute distress. HEENT: Conjunctiva pink, Sclera clear, Mucus Membranes dry. Neck: Supple without masses and tenderness. Resp: Unlabored. Diminished breath sounds bilaterally Heart: Regular rhythm, normal S1 and S2, no rub, murmur or gallop. Abdomen: Soft and non tender no organomegaly. Normal bowel sounds x4 quadrant normoactive. No guarding or rigidity. Extremities: Left leg swelling 2+, erythema and edema. Left lateral leg have superficial blisters with active foul-smelling discharge. Dressing intact. 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 Skin: Warm and Dry. Coagulation Studies Laboratory Tests Test 06/23/25 04:26 Prothrombin Time 11.6 SECONDS (9.0-12.0) INR International Normalized Ratio 1.1 INR Coagulation Comments Assessment Assessment 54-year-old homeless male with history of substance use disorder (meth IV) presented to the ED with chief complaints of left lower extremity pain and swelling for the past six days. Plan Plan Left leg cellulitis Failed outpatient antibiotic therapy (Bactrim) Leukocytosis WBCs 16.8, procalcitonin 0.94 and lactic acid 2.5 Aggressive fluid resuscitation 2 L fluid bolus followed by normal saline at 100 mL/hour Received IV Zosyn in the ED Started IV vanc and ceftriaxone Wound care consulted Follow up with blood and Wound cultures, CT lower extremity and vascular ultrasound 06/24/2025 CT of the left lower extremity findings positive for cellulitis and possible loculated collection concerning for phlegmon versus abscess Dr. Larios orthopedics has been consulted, recommended medical management if the swelling continues to get worse he will require I&D We will repeat CT in the left lower extremity in a.m. Cultures NGTD UTI DAVID likely secondary to vasomotor nephropathy Continue fluid resuscitation IV antibiotics ceftriaxone 1 g IV daily, Final cultures negative Orthopnea He does complain of orthopnea, has mildly elevated BNP 132 He does not have any signs of fluid overload Ordered echo to evaluate for meth induced cardiomyopathy, follow up with results 06/23/2025 Preliminary report EF is 60-65 RVSP 37 mmHg Substance use disorder Methamphetamine abuse Active smoking half a pack a day Substance use navigator consulted, appreciate recommendations Nicotine patch Code Status: Full code DVT prophylaxis: Heparin Analgesia/sedation: [place]/morphine Line/tube: PIV GI prophylaxis: None Nutrition: Regular diet Prognosis: Guarded Disposition: Continue medical management. We will repeat CT noncontrast of the left lower extremity in a.m.. PT eval and treat. Annalisa Garcia MD. IM Resident PGY-3 Date of Service: Jun 24, 2025 Billing Provider: MARK FRANCISCO MD, ELIZABETH, KIYA Jun 24, 2025 17:31
[2025-06-24 18:00] VITALS: BP 121/69; PULSE 78; RESP 16; TEMP 98.7; O2SAT 99
[2025-06-24] MEDS: magnesium hydroxide 30ml (MOM) UD suspension PO PRN (21:03)
[2025-06-24 22:00] VITALS: BP 114/60; PULSE 79; RESP 18; TEMP 98; O2SAT 96
[2025-06-24 23:00] VITALS: RESP 16
[2025-06-25 06:00] VITALS: BP 119/49; PULSE 65; RESP 18; TEMP 98.6; O2SAT 96
[2025-06-25 06:25] LABS: MEAN PLATELET VOLUME 7.2 FL (7.4-10.4); RED CELL DISTRIBUTION WIDTH 14.8 % (11.5-14.5)
[2025-06-25 06:36] LABS: CREATININE 0.78 MG/DL (0.60-1.10); PHOSPHORUS 3.0 MG/DL (2.3-4.5); TOTAL CARBON DIOXIDE 29.2 MMOL/L (24-32); eCRCL 110 ML/MIN; eGFR > 90 ML/MIN
--- NOTE | 2025-06-25 07:33 | PROGRESS NOTE ---
Progress Note Ortho Ortho Post Op Day #: Other Follow Up Progress Note still c/o significant pain, has not been up with PT yet due to pain ROS ROS No new complaints Exam Exam: Alert and Oreinted x4 Exam Comments blister decompressed, still with erythema from patella to ankle, no abscess appreciated, moving toes well no evidence of compartment syndrome Problem/Assessment/Plan Problems/Diagnosis: (1) Cellulitis of left leg Additional Plan agree with plan to repeat CT scan Results/Orders Result Diagram: 06/25/25 0518 06/25/25 0518 MACHO STARKS Jr., MD Jun 25, 2025 07:33
[2025-06-25] MEDS: magnesium Cl slow-release 64mg tablet PO PRN (07:36)
[2025-06-25 08:00] VITALS: RESP 20
[2025-06-25 08:52] LABS: BANDS% (MANUAL) 3.0 % (0-10); EOSINOPHILS % (MANUAL) 1.0 % (0-6); LYMPHOCYTES % (MANUAL) 13.0 % (21-51); METAMYLEOCYTES% (MANUAL) 3.0 % (0-0); MONOCYTES % (MANUAL) 9.0 % (2-12); NEUTROPHILS % (MANUAL) 71.0 % (42-75)
[2025-06-25 08:54] LABS: PLATELET ESTIMATE NORMAL
[2025-06-25 10:00] VITALS: BP 118/55; PULSE 72; RESP 14; TEMP 98.1; O2SAT 93
--- NOTE | 2025-06-25 12:24 | RADIOLOGY REPORT ---
EXAM: CT CT LOWER EXTREMITY INDICATION: abscess TECHNIQUE: Axial images of left lower extremity have been obtained along with coronal and sagittal re formatted images. All CT scans at this facility use dose modulation, iterative reconstruction, and/or weight based dosing when appropriate to reduce radiation dose to as low as reasonably achievable. COMPARISON: CT CT LOWER EXTREMITY on DOS: 06/22/25 FINDINGS: BONES: No CT evidence of an acute fracture or aggressive osseous lesion. no abnormal osseous erosion, lucency, sclerosis to suggest osteomyelitis. MUSCLES: No abnormal attenuation. JOINT SPACES: No joint effusion. TENDONS/LIGAMENTS: Intact. OTHER: Significant surrounding subcutaneous adipose tissue edema primarily along the anterior and lat eral aspect of the calf extending to the ankle likely compatible with cellulitis. Overlying skin thic kening. No drainable fluid collection. Superficial varicosities. No soft tissue emphysema IMPRESSION: 1. Cellulitis/fasciitis. 2. No definitive intramuscular involvement. No drainable fluid collection/abscess
[2025-06-25] MEDS: ondansetron/PF 4mg/2ml inj IV PRN (15:24)
[2025-06-25] MEDS ORDERED: potassium Cl 40MEQ/1/2NS 520ml 520 ML IV PRN (16:30)
[2025-06-25] MEDS ORDERED: magnesium sulf-water 4G/100mL 100 ML IV PRN (16:30)
[2025-06-25] MEDS ORDERED: potassium Cl 20 mEq SR tablet PO PRN ×2 (16:30)
[2025-06-25] MEDS ORDERED: magnesium Cl slow-release 64mg tablet PO PRN (16:30)
[2025-06-25] MEDS ORDERED: magnesium sulf-water 2g/50mL 50 ML IV PRN (16:30)
[2025-06-25 18:00] VITALS: BP 117/71; PULSE 78; RESP 18; TEMP 97.8; O2SAT 99
--- NOTE | 2025-06-25 18:18 | PROGRESS NOTE- Residence ---
Progress Note - Resident Providers to CC Resident Creating Document: ANNALISA GARCIA RES ~ Antibiotic Timeout Antibiotic Ordered?: Yes Subjective Patient seen and examined at bedside. Continues to have pain and swelling in the left lower extremity. Wound care consulted and following. Objective Vital Signs Date Time Temp Pulse Resp B/P (MAP) Pulse Ox O2 Delivery O2 Flow Rate FiO2 06/25/25 16:24 20 06/25/25 10:00 98.1 72 118/55 (76) 93 Room Air 06/24/25 23:00 0.0 Result Diagram: 06/25/2551706/25/25517 General: Awake and Alert, no acute distress. HEENT: Conjunctiva pink, Sclera clear, Mucus Membranes dry. Neck: Supple without masses and tenderness. Resp: Unlabored. Diminished breath sounds bilaterally Heart: Regular rhythm, normal S1 and S2, no rub, murmur or gallop. Abdomen: Soft and non tender no organomegaly. Normal bowel sounds x4 quadrant normoactive. No guarding or rigidity. Extremities: Left leg swelling 2+, erythema and edema. Left lateral leg have superficial blisters with active foul-smelling discharge. Dressing intact. 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 Skin: Warm and Dry. Coagulation Studies Laboratory Tests Test 06/23/25 04:26 Prothrombin Time 11.6 SECONDS (9.0-12.0) INR International Normalized Ratio 1.1 INR Coagulation Comments Assessment Assessment 54-year-old homeless male with history of substance use disorder (meth IV) presented to the ED with chief complaints of left lower extremity pain and swelling for the past six days. Plan Plan Left leg cellulitis Failed outpatient antibiotic therapy (Bactrim) Leukocytosis WBCs 16.8, procalcitonin 0.94 and lactic acid 2.5 Aggressive fluid resuscitation 2 L fluid bolus followed by normal saline at 100 mL/hour Received IV Zosyn in the ED Started IV vanc and ceftriaxone Wound care consulted Follow up with blood and Wound cultures, CT lower extremity and vascular ultrasound 06/25/2025 CT of the left lower extremity findings positive for cellulitis and possible loculated collection concerning for phlegmon versus abscess Dr. Larios orthopedics has been consulted, and following, appreciate recommendations Repeat CT findings consistent with cellulitis/fasciitis no intramuscular involvement or fluid/abscess noted. Cultures NGTD PT eval and treat: Home has DC barriers, we will need to keep working with physical therapy until cleared for discharge UTI DAVID likely secondary to vasomotor nephropathy Continue fluid resuscitation Final cultures negative Orthopnea He does complain of orthopnea, has mildly elevated BNP 132 He does not have any signs of fluid overload Ordered echo to evaluate for meth induced cardiomyopathy, follow up with results 06/23/2025 Preliminary report EF is 60-65 RVSP 37 mmHg Substance use disorder Methamphetamine abuse Active smoking half a pack a day Substance use navigator consulted, appreciate recommendations Nicotine patch Code Status: Full code DVT prophylaxis: Heparin Analgesia/sedation: [place]/morphine Line/tube: PIV GI prophylaxis: None Nutrition: Regular diet Prognosis: Guarded Disposition: Continue medical management. Repeat CT findings concerning for cellulitis no definitive abscess. Can be discharged home once cleared by PT. Annalisa Garcia MD. IM Resident PGY-3 Date of Service: Jun 25, 2025 Billing Provider: MARK FRANCISCO MD, ELIZABETH, RES Jun 25, 2025 18:18
[2025-06-25] MEDS: bisacodyl 10mg suppository rectal RC PRN (19:14)
[2025-06-25] MEDS: mag hydrox/Alum hydrox/simeth 30ml oral suspension PO PRN (19:14)
[2025-06-25 20:00] VITALS: RESP 18; O2SAT 99
[2025-06-25 22:00] VITALS: BP 127/76; PULSE 83; RESP 16; TEMP 97.9; O2SAT 97
[2025-06-26] MEDS: VANCOMYCIN LEVEL IV ONE (02:41)
[2025-06-26 02:54] LABS: MEAN PLATELET VOLUME 6.8 FL (7.4-10.4); RED CELL DISTRIBUTION WIDTH 14.7 % (11.5-14.5)
[2025-06-26 03:18] LABS: CREATININE 0.52 MG/DL (0.60-1.10); PHOSPHORUS 3.3 MG/DL (2.3-4.5); TOTAL CARBON DIOXIDE 33.3 MMOL/L (24-32); eCRCL 164 ML/MIN; eGFR > 90 ML/MIN
[2025-06-26 04:30] LABS: BANDS% (MANUAL) 20 % (0-10); EOSINOPHILS % (MANUAL) 1 % (0-6); LYMPHOCYTES % (MANUAL) 10 % (21-51); METAMYLEOCYTES% (MANUAL) 1 % (0-0); MONOCYTES % (MANUAL) 11 % (2-12); NEUTROPHILS % (MANUAL) 57 % (42-75); PLATELET ESTIMATE NORMAL
[2025-06-26 06:57] VITALS: BP 109/61; PULSE 64; RESP 16; TEMP 97.7; O2SAT 93
--- NOTE | 2025-06-26 07:18 | PROGRESS NOTE ---
Progress Note Ortho Follow Up Progress Note PT FEELS BETTER, ABLE TO MOVE LEG. LESS PAIN ROS ROS No new complaints Exam Exam: Alert and Oreinted x4, Appropriate Exam Comments Much improved erythema and swelling, new Apparent fluctuant area laterally, I aspirated 2cc blood, sent for culture, no pus expressed. CT scan states "no fluid seen " Problem/Assessment/Plan Problems/Diagnosis: (1) Cellulitis of left leg Additional Plan Observe, possible fluid collection starting up, await culture, but clinically improved Results/Orders Result Diagram: 06/26/25 0240 06/26/25 0240 MACHO STARKS Jr., MD Jun 26, 2025 07:18
[2025-06-26] MEDS: lactose-reduced food (Ensure Enlive) - 237ml bottle PO SCH (08:23)
[2025-06-26 09:36] VITALS: RESP 16
[2025-06-26 10:40] VITALS: BP 94/53; PULSE 65; RESP 13; TEMP 97.3; O2SAT 97
--- NOTE | 2025-06-26 15:19 | PROGRESS NOTE- Residence ---
Progress Note - Resident Providers to CC Resident Creating Document: ANNALISA GARCIA RES ~ Antibiotic Timeout Antibiotic Ordered?: Yes Subjective Patient seen and examined at bedside. Left lower extremity swelling much better today, he states the pain is better as well. Aspirated [address] Larios this morning. No other concerns or complaints. Objective Vital Signs Date Time Temp Pulse Resp B/P (MAP) Pulse Ox O2 Delivery O2 Flow Rate FiO2 06/26/25 10:57 18 06/26/25 10:40 97.3 65 94/53 (67) 97 Room Air 06/26/25 09:36 0.0 Result Diagram: 06/26/25 0240 06/26/25 0240 General: Awake and Alert, no acute distress. HEENT: Conjunctiva pink, Sclera clear, Mucus Membranes dry. Neck: Supple without masses and tenderness. Resp: Unlabored. Diminished breath sounds bilaterally Heart: Regular rhythm, normal S1 and S2, no rub, murmur or gallop. Abdomen: Soft and non tender no organomegaly. Normal bowel sounds x4 quadrant normoactive. No guarding or rigidity. Extremities: Left leg swelling 1+, erythema and edema improving. Left lateral leg have superficial blisters with active foul-smelling discharge. Dressing intact. LINUX CONSULTANT: No gross motor or sensory abnormalities. Skin: Warm and Dry. Coagulation Studies Laboratory Tests Test 06/23/25 04:26 Prothrombin Time 11.6 SECONDS (9.0-12.0) INR International Normalized Ratio 1.1 INR Coagulation Comments Assessment Assessment 54-year-old homeless male with history of substance use disorder (meth IV) presented to the ED with chief complaints of left lower extremity pain and swelling for the past six days. Plan Plan Left leg cellulitis Failed outpatient antibiotic therapy (Bactrim) Leukocytosis WBCs 16.8, procalcitonin 0.94 and lactic acid 2.5 Aggressive fluid resuscitation 2 L fluid bolus followed by normal saline at 100 mL/hour Received IV Zosyn in the ED Started IV vanc and ceftriaxone Wound care consulted Follow up with blood and Wound cultures, CT lower extremity and vascular ultrasound 06/25/2025 CT of the left lower extremity findings positive for cellulitis and possible loculated collection concerning for phlegmon versus abscess Dr. Larios orthopedics has been consulted, and following, appreciate recommendations Repeat CT findings consistent with cellulitis/fasciitis no intramuscular involvement or fluid/abscess noted. Cultures NGTD PT eval and treat: Home has DC barriers, we will need to keep working with physical therapy until cleared for discharge 06/26/25 Left lower extremity swelling significantly better today, Dr. Larios had drained 2 cc of blood from the wound and sent it for culture this morning Blood cultures no growth after four days, follow up with wound cultures sent from today Continue vancomycin and ceftriaxone DAVID likely secondary to vasomotor nephropathy UTI ruled out Continue fluid resuscitation Initial UA, was indicative of infection but Final cultures negative Orthopnea He does complain of orthopnea, has mildly elevated BNP 132 He does not have any signs of fluid overload Ordered echo to evaluate for meth induced cardiomyopathy, follow up with results 06/23/2025 Preliminary report EF is 60-65 RVSP 37 mmHg Substance use disorder Methamphetamine abuse Active smoking half a pack a day Substance use navigator consulted, appreciate recommendations Nicotine patch Code Status: Full code DVT prophylaxis: Heparin Analgesia/sedation: [place]/morphine Line/tube: PIV GI prophylaxis: None Nutrition: Regular diet Prognosis: Guarded Disposition: Continue medical management. I and D done by Dr. Larios this morning of a new fluctuant area on the lateral side of the leg aspirating 2 cc of blood, follow up with cultures. Annalisa Garcia MD. IM Resident PGY-3 Date of Service: Jun 26, 2025 Billing Provider: MARK FRANCISCO MD, ELIZABETH, RES Jun 26, 2025 15:19
[2025-06-26] MEDS: VANCOMYCIN 1.75GM/WATER FOR INJ (PEG) 350 ML IVPB IV SCH (16:37)
[2025-06-26 18:00] VITALS: BP 97/58; PULSE 65; RESP 16; TEMP 98; O2SAT 99
[2025-06-26 20:00] VITALS: RESP 16; O2SAT 99
[2025-06-26 22:00] VITALS: BP 96/48; PULSE 68; RESP 20; TEMP 98.2; O2SAT 96
[2025-06-27 05:52] LABS: MEAN PLATELET VOLUME 7.1 FL (7.4-10.4); RED CELL DISTRIBUTION WIDTH 15.5 % (11.5-14.5)
[2025-06-27 06:07] LABS: CREATININE 0.85 MG/DL (0.60-1.10); PHOSPHORUS 3.8 MG/DL (2.3-4.5); TOTAL CARBON DIOXIDE 31.2 MMOL/L (24-32); eCRCL 100 ML/MIN; eGFR > 90 ML/MIN
[2025-06-27 06:30] VITALS: BP 99/49; PULSE 57; RESP 20; TEMP 97.7; O2SAT 100
[2025-06-27 07:20] LABS: BANDS% (MANUAL) 3.0 % (0-10); EOSINOPHILS % (MANUAL) 3.0 % (0-6); LYMPHOCYTES % (MANUAL) 15.0 % (21-51); METAMYLEOCYTES% (MANUAL) 4.0 % (0-0); MONOCYTES % (MANUAL) 4.0 % (2-12); NEUTROPHILS % (MANUAL) 70.0 % (42-75); PLATELET ESTIMATE INCREASED; REACTIVE LYMPHOCYTES % 1.0 % (0-0)
[2025-06-27 10:55] VITALS: BP 93/59; PULSE 72; RESP 16; TEMP 98.2; O2SAT 97
--- NOTE | 2025-06-27 14:23 | PROGRESS NOTE- Residence ---
Progress Note - Resident Providers to CC Resident Creating Document: ANNALISA GARCIA RES ~ Antibiotic Timeout Antibiotic Ordered?: Yes Subjective Patient seen and examined at bedside. Left lower extremity dressing changed and clean. Complaints of mild pain in the left lower limb. No new concerns or complaints. Objective Vital Signs Date Time Temp Pulse Resp B/P (MAP) Pulse Ox O2 Delivery O2 Flow Rate FiO2 06/27/25 11:38 16 06/27/25 10:55 98.2 72 93/59 (70) 97 Room Air 06/27/25 08:30 0.0 Result Diagram: 06/27/2544906/27/25449 General: Awake and Alert, no acute distress. HEENT: Conjunctiva pink, Sclera clear, Mucus Membranes dry. Neck: Supple without masses and tenderness. Resp: Unlabored. Diminished breath sounds bilaterally Heart: Regular rhythm, normal S1 and S2, no rub, murmur or gallop. Abdomen: Soft and non tender no organomegaly. Normal bowel sounds x4 quadrant normoactive. No guarding or rigidity. Extremities: Left leg swelling 1+, erythema and edema improving. Left lateral leg have superficial blisters with active foul-smelling discharge. Dressing intact. 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 Skin: Warm and Dry. Coagulation Studies Laboratory Tests Test 06/23/25 04:26 Prothrombin Time 11.6 SECONDS (9.0-12.0) INR International Normalized Ratio 1.1 INR Coagulation Comments Assessment Assessment 54-year-old homeless male with history of substance use disorder (meth IV) presented to the ED with chief complaints of left lower extremity pain and swelling for the past six days. Plan Plan Left leg cellulitis Failed outpatient antibiotic therapy (Bactrim) Leukocytosis WBCs 16.8, procalcitonin 0.94 and lactic acid 2.5 Aggressive fluid resuscitation 2 L fluid bolus followed by normal saline at 100 mL/hour Received IV Zosyn in the ED Started IV vanc and ceftriaxone Wound care consulted Follow up with blood and Wound cultures, CT lower extremity and vascular ultrasound 06/25/2025 CT of the left lower extremity findings positive for cellulitis and possible loculated collection concerning for phlegmon versus abscess Dr. Larios orthopedics has been consulted, and following, appreciate recommendations Repeat CT findings consistent with cellulitis/fasciitis no intramuscular involvement or fluid/abscess noted. Cultures NGTD PT eval and treat: Home has DC barriers, we will need to keep working with physical therapy until cleared for discharge 06/26/25 Left lower extremity swelling significantly better today, Dr. Larios had drained 2 cc of blood from the wound and sent it for culture this morning Blood cultures no growth after four days, follow up with wound cultures sent from today Continue vancomycin and ceftriaxone 06/27/2025 Blood pressures soft, no fever, chills, WBCs and procalcitonin wnl, will give him 1 L bolus and continue fluids NS at 50 mL/hour Left lower extremity wound dressing change this morning, clean Cultures positive for Gram-positive cocci in pairs, follow up with sensitivity Continue IV vancomycin Worked with Physical therapy today, he has discharge barriers DAVID likely secondary to vasomotor nephropathy UTI ruled out Continue fluid resuscitation Initial UA, was indicative of infection but Final cultures negative Orthopnea He does complain of orthopnea, has mildly elevated BNP 132 He does not have any signs of fluid overload Ordered echo to evaluate for meth induced cardiomyopathy, follow up with results 06/23/2025 Preliminary report EF is 60-65 RVSP 37 mmHg Substance use disorder Methamphetamine abuse Active smoking half a pack a day Substance use navigator consulted, appreciate recommendations Nicotine patch Code Status: Full code DVT prophylaxis: Heparin Analgesia/sedation: [place]/morphine Line/tube: PIV GI prophylaxis: None Nutrition: Regular diet Prognosis: Guarded Disposition: Continue medical management. Left lower extremity wound cultures growing Gram-positive cocci in pairs, follow up with sensitivity. Continue IV vancomycin. Worked with physical therapy, has DC barriers. Annalisa Garcia MD. IM Resident PGY-3 Date of Service: Jun 27, 2025 Billing Provider: MARK FRANCISCO MD, ELIZABETH, RES Jun 27, 2025 14:23
[2025-06-27 18:00] VITALS: BP 95/56; PULSE 61; RESP 16; TEMP 98; O2SAT 97
[2025-06-27] MEDS: normal saline 1000ml 1,000 ML IV ONE (18:57)
[2025-06-27 20:00] VITALS: RESP 16; O2SAT 97
[2025-06-27 22:00] VITALS: BP 103/69; PULSE 60; RESP 18; TEMP 98.2; O2SAT 95
[2025-06-28] MEDS: VANCOMYCIN LEVEL IV ONE (03:17)
[2025-06-28 03:40] LABS: MEAN PLATELET VOLUME 7.3 FL (7.4-10.4); RED CELL DISTRIBUTION WIDTH 14.9 % (11.5-14.5)
[2025-06-28 03:54] LABS: CREATININE 0.67 MG/DL (0.60-1.10); TOTAL CARBON DIOXIDE 30.5 MMOL/L (24-32); eCRCL 127 ML/MIN; eGFR > 90 ML/MIN
[2025-06-28 04:54] LABS: EOSINOPHILS % (MANUAL) 3.0 % (0-6); LYMPHOCYTES % (MANUAL) 19.0 % (21-51); NEUTROPHILS % (MANUAL) 71.0 % (42-75)
[2025-06-28 04:56] LABS: MONOCYTES % (MANUAL) 7.0 % (2-12); PLATELET ESTIMATE INCREASED
[2025-06-28 05:00] VITALS: BP 99/61; PULSE 52; RESP 16; TEMP 98; O2SAT 98
[2025-06-28 11:00] VITALS: BP 96/55; PULSE 54; RESP 16; TEMP 98.1; O2SAT 98
--- NOTE | 2025-06-28 14:15 | PROGRESS NOTE- Residence ---
Progress Note - Resident Providers to CC Resident Creating Document: AMAN SARAH RES CC: MARK FRANCISCO MD ~ Antibiotic Timeout Antibiotic Ordered?: Yes Subjective Patient is seen and examined at bedside. Patient states that his pain is improved, amenable to pain medications. He does not have any other complaints besides pain. No acute overnight events. Objective Vital Signs Date Time Temp Pulse Resp B/P (MAP) Pulse Ox O2 Delivery O2 Flow Rate FiO2 06/28/25 07:43 18 06/27/25 22:00 98.2 60 103/69 (80) 95 Room Air 06/27/25 08:30 0.0 Result Diagram: 06/28/25 0250 06/28/25 0250 General: Alert, awake, oriented, not in acute distress HEENT: PERRLA, no icterus, pallor, lymphadenopathy, carotid bruit Respiratory system: Bilateral vesicular breath sounds heard, no adventitious breath sounds CVS: S1-S2 heard, no murmurs/rubs/gallop GI: Soft, nontender, no organomegaly, no guarding/rigidity, bowel sounds present Neuro: No focal neurological deficits present Extremities: Erythema, swelling, warmth with edema and tenderness present on the left side (improving) Skin: Warm and dry Coagulation Studies Laboratory Tests Test 06/23/25 04:26 Prothrombin Time 11.6 SECONDS (9.0-12.0) INR International Normalized Ratio 1.1 INR Coagulation Comments Assessment Assessment 54-year-old homeless male with history of substance use disorder (meth IV) presented to the ED with chief complaints of left lower extremity pain and swelling for the past six days. Patient is admitted for the evaluation management of left lower extremity cellulitis. Plan Plan Left leg cellulitis, MRSA Failed outpatient antibiotic therapy (Bactrim) WBC count, procalcitonin normal Wound cultures positive for MRSA Continue IV vancomycin pharmacy to dose (day 3), discontinued ceftriaxone in view of cultures Continue wound care, negative blood cultures Dr. Larios (orthopedics) had drained 2 cc of blood from the wound and sent it for culture this morning PT eval and treat: Home has DC barriers, we will need to keep working with physical therapy until cleared for discharge 06/26/25 DAVID likely secondary to vasomotor nephropathy, resolved UTI ruled out Suspicion for heart failure, ruled out Substance use disorder Methamphetamine abuse Substance use navigator consulted, appreciate recommendations Nicotine patch Severe protein energy malnutrition Protein shakes Code Status: Full code DVT prophylaxis: Heparin Nutrition: Regular diet Prognosis: Guarded Disposition: Continue medical management. Worked with physical therapy, has DC barriers. Aman Sarah MD Internal Medicine, PGY 2 Date of Service: Jun 28, 2025 Billing Provider: MARK FRANCISCO MD, SIVA, RES Jun 28, 2025 14:15
[2025-06-28] MEDS: HYDROcodone/acetaminophen 5mg/325mg tablet PO PRN (15:07)
[2025-06-28] MEDS: lactose-reduced food (Ensure High Protein) 237ml bottle PO SCH (18:00)
[2025-06-28 22:00] VITALS: BP 116/70; PULSE 63; RESP 18; TEMP 98.4; O2SAT 96
[2025-06-29 06:00] VITALS: BP 105/68; PULSE 56; RESP 17; TEMP 97.2; O2SAT 98
[2025-06-29 06:05] LABS: MEAN PLATELET VOLUME 7.3 FL (7.4-10.4); RED CELL DISTRIBUTION WIDTH 15.1 % (11.5-14.5)
[2025-06-29 06:15] LABS: CREATININE 0.81 MG/DL (0.60-1.10); TOTAL CARBON DIOXIDE 30.0 MMOL/L (24-32); eCRCL 105 ML/MIN; eGFR > 90 ML/MIN
[2025-06-29 08:00] VITALS: RESP 16; O2SAT 98
--- NOTE | 2025-06-29 08:28 | PROGRESS NOTE ---
Progress Note Ortho Follow Up ROS ROS No new complaints Exam Exam: Alert and Oreinted x4, Appropriate, In no acute distress Exam Comments The previous erythema has largely resolved. He has some ulceration on the anterolateral leg area with superficial depth. He is moving his toes well and wounds appear to be more ulcerations Problem/Assessment/Plan Problems/Diagnosis: (1) Cellulitis of left leg Additional Plan Wound care for the leg and encourage ambulation. Results/Orders Result Diagram: 06/29/25 0500 06/29/25 0500 MACHO STARKS Jr., MD Jun 29, 2025 08:28
[2025-06-29 08:47] LABS: BASOPHILS % (MANUAL) 1.0 % (0-1); EOSINOPHILS % (MANUAL) 2.0 % (0-6); LYMPHOCYTES % (MANUAL) 18.0 % (21-51); METAMYLEOCYTES% (MANUAL) 1.0 % (0-0); MONOCYTES % (MANUAL) 11.0 % (2-12); NEUTROPHILS % (MANUAL) 67.0 % (42-75); PLATELET ESTIMATE INCREASED
[2025-06-29 10:30] VITALS: BP 95/62; PULSE 61; RESP 17; TEMP 97.6; O2SAT 99
--- NOTE | 2025-06-29 15:27 | PROGRESS NOTE- Residence ---
Progress Note - Resident Providers to CC Resident Creating Document: ANNALISA GARCIA RES ~ Antibiotic Timeout Antibiotic Ordered?: Yes Subjective Patient seen and examined at bedside. He states that this morning his legs started bleeding, he had his dressing changed, currently the leg is wrapped in clean dressing. I asked him about the plan on discharging him today, he states that he does not have a home and he does not want to go to [place] as he states that the place is bad and the people there are greedy in keep stealing his stuff. I mentioned to him that case management Ms. Jensen will talk to him about his discharge plan. Objective Vital Signs Date Time Temp Pulse Resp B/P (MAP) Pulse Ox O2 Delivery O2 Flow Rate FiO2 06/29/25 10:32 16 06/29/25 10:30 97.6 61 95/62 (73) 99 Room Air 06/29/25 08:00 0.0 Result Diagram: 06/29/25 0500 06/29/25 0500 General: Awake and Alert, no acute distress. HEENT: Conjunctiva pink, Sclera clear, Mucus Membranes dry. Neck: Supple without masses and tenderness. Resp: Unlabored. Diminished breath sounds bilaterally Heart: Regular rhythm, normal S1 and S2, no rub, murmur or gallop. Abdomen: Soft and non tender no organomegaly. Normal bowel sounds x4 quadrant normoactive. No guarding or rigidity. Extremities: Left leg swelling 1+, erythema and edema improving. Left lateral leg have superficial blisters with clean Dressing. GAMBLING BROKER: No gross motor or sensory abnormalities. Skin: Warm and Dry. Coagulation Studies Laboratory Tests Test 06/23/25 04:26 Prothrombin Time 11.6 SECONDS (9.0-12.0) INR International Normalized Ratio 1.1 INR Coagulation Comments Assessment Assessment 54-year-old homeless male with history of substance use disorder (meth IV) presented to the ED with chief complaints of left lower extremity pain and swelling for the past six days. Patient is admitted for the evaluation management of left lower extremity cellulitis. Plan Plan Left leg cellulitis Failed outpatient antibiotic therapy (Bactrim) Leukocytosis WBCs 16.8, procalcitonin 0.94 and lactic acid 2.5 Aggressive fluid resuscitation 2 L fluid bolus followed by normal saline at 100 mL/hour Received IV Zosyn in the ED Started IV vanc and ceftriaxone Wound care consulted Follow up with blood and Wound cultures, CT lower extremity and vascular ultrasound 06/25/2025 CT of the left lower extremity findings positive for cellulitis and possible loculated collection concerning for phlegmon versus abscess Dr. Larios orthopedics has been consulted, and following, appreciate recommendations Repeat CT findings consistent with cellulitis/fasciitis no intramuscular involvement or fluid/abscess noted. Cultures NGTD 06/26/25 Left lower extremity swelling significantly better today, Dr. Larios had drained 2 cc of blood from the wound and sent it for culture this morning Blood cultures no growth after four days, follow up with wound cultures sent from today Continue vancomycin and ceftriaxone 06/27/2025 Blood pressures soft, no fever, chills, WBCs and procalcitonin wnl, will give him 1 L bolus and continue fluids NS at 50 mL/hour Left lower extremity wound dressing change this morning, clean Cultures positive for Gram-positive cocci in pairs, follow up with sensitivity Continue IV vancomycin Worked with Physical therapy today, he has discharge barriers 06/29/2025 Culture and sensitivity available in the chart, he can be discharged on p.o. linezolid (MARLA 2), Dr. Larios recommended medical management no procedure needed at this time He will have to follow up with wound care outpatient, PT he has discharge barriers, he will require assisted home states that he has a assistance at home but he has no home, he states that he does not want to go to the [facility] and is requesting for respite care, shoe caser working on placement. DAVID likely secondary to vasomotor nephropathy UTI ruled out Continue fluid resuscitation Initial UA, was indicative of infection but Final cultures negative Orthopnea No signs or symptoms of heart failure, heart failure ruled out He does complain of orthopnea, has mildly elevated BNP 132 He does not have any signs of fluid overload Ordered echo to evaluate for meth induced cardiomyopathy, follow up with results 06/23/2025 Preliminary report EF is 60-65 RVSP 37 mmHg Substance use disorder Methamphetamine abuse Active smoking half a pack a day Substance use navigator consulted, appreciate recommendations Nicotine patch Code Status: Full code DVT prophylaxis: Heparin Analgesia/sedation: [place]/morphine Line/tube: PIV GI prophylaxis: None Nutrition: Regular diet Prognosis: Guarded Disposition: Continue medical management. Left lower extremity wound cultures and sensitivities available, can switch antibiotic to p.o. linezolid (MARLA 2). Worked with physical therapy, has discharge barriers, he will require assistance at home states that he has a assistance at home but he has no home, he states that he does not want to go to the [facility] and is requesting for respite care, shoe caser working on placement. Annalisa Garcia MD. Resident PGY-3 Date of Service: Jun 29, 2025 Billing Provider: MARK FRANCISCO MD, ELIZABETH, KIYA Jun 29, 2025 15:27
[2025-06-29 18:00] VITALS: BP 98/62; PULSE 56; RESP 16; TEMP 97.9; O2SAT 97
[2025-06-29 20:00] VITALS: RESP 18; O2SAT 96
[2025-06-29 22:00] VITALS: BP 89/49; PULSE 65; RESP 16; TEMP 98; O2SAT 97
[2025-06-30 04:30] LABS: MEAN PLATELET VOLUME 7.1 FL (7.4-10.4); RED CELL DISTRIBUTION WIDTH 14.9 % (11.5-14.5)
[2025-06-30 04:42] LABS: CREATININE 0.73 MG/DL (0.60-1.10); TOTAL CARBON DIOXIDE 27.6 MMOL/L (24-32); eCRCL 117 ML/MIN; eGFR > 90 ML/MIN
[2025-06-30 05:14] LABS: BANDS% (MANUAL) 11 % (0-10); EOSINOPHILS % (MANUAL) 1 % (0-6); LYMPHOCYTES % (MANUAL) 27 % (21-51); METAMYLEOCYTES% (MANUAL) 1 % (0-0); MONOCYTES % (MANUAL) 9 % (2-12); NEUTROPHILS % (MANUAL) 51 % (42-75)
[2025-06-30 05:15] LABS: PLATELET ESTIMATE NORMAL
[2025-06-30 07:00] VITALS: BP 95/57; PULSE 54; RESP 16; TEMP 98.6; O2SAT 97
[2025-06-30 10:00] VITALS: BP 115/78; PULSE 68; RESP 15; TEMP 97.3; O2SAT 96
[2025-06-30] MEDS ORDERED: NICO-631 TD (12:22)
[2025-06-30] MEDS ORDERED: LACT1CAP26 PO (12:22)
[2025-06-30] MEDS ORDERED: LINE600T11 PO (12:22)
--- NOTE | 2025-06-30 16:10 | DISCHARGE SUMMARY-Residence ---
Discharge Summary Providers to CC Resident Creating Document: DEANDRE GARCIA RES ~ Discharge Summary Admission Diagnosis: LE CELLULITIS Hospital Course DATE OF ADMISSION: 06/22/2025 DATE OF DISCHARGE: 06/30/2025 Hospital course same as mentioned discharge summary. Discharge Diagnosis\\Comment: Acute Left leg cellulitis, cultures positive for MRSA Failed outpatient antibiotic treatment (Bactrim) DAVID secondary to vasomotor nephropathy-resolved Orthopnea, heart failure ruled out Substance use disorder Methamphetamine abuse Active smoker Operations\\Procedures: None Consultants: Dr. Larios orthopedics Complications: None Condition on DC: Stable New Medications: Lactobacillus Rhamnosus (Culturelle) 10 Billion Cell Capsule 1 CAP PO DAILY for 30 Days, #30 CAP 0 Refills Linezolid (ZYVOX tablet) 600 Mg Tablet 600 MG PO BID for 10 Days, #20 TAB Nicotine 14 MG Patch* (Habitrol 14 MG Patch*) 1 Each Patch.td24 1 PATCH TD DAILY, #14 PATCH Continued Medications: Home Med List (No Home Medications) Each Discharge Summary: As per HPI: 54-year-old homeless male with history of substance use disorder (meth IV) presented to the ED with chief complaints of left lower extremity pain and swelling for the past six days. Patient states that his swelling started six days ago as a "spot on the knee with no bleeding". He has been here in the ER couple of times and was discharged with Bactrim. He states that he went to [facility] twice, initially could not pick it up and eventually guarded three days prior to arrival to the ED. he states that his symptoms kept getting worse and the swelling was getting bigger. He has associated fever and chills. He also complains of orthopnea, nausea and vomiting. Pain in the left lower extremity 06/07. Denies chest pain, dizziness, headaches, shortness of breath, diarrhea or constipation. He states that he has a primary care provider Dr. Phillips. He smokes half a pack of cigarettes a day last smoke was yesterday. Uses meth IV and also smokes. Discussed advanced care directives and he wishes to be a full code. Hospital course: On further evaluation he had leukocytosis with WBCs 16.8, procalcitonin 0.94 and lactic acid 2.5. He was aggressively fluid resuscitated giving 2 L fluid bolus followed by normal saline at 100 mL/hour. He received IV Zosyn in the ED. Started IV vancomycin and ceftriaxone. Wound Care has been consulted and were following the patient. CT of the lower extremity was done which showed findings positive for cellulitis and possible loculated collection concerning for phlegmon versus abscess and hence orthopedics Dr. Alfredo was consulted. Recommended medical management no interventions at this time. Repeat CT was done which was consistent with cellulitis no intramuscular involvement or abscess noted. On 06/26/2025 Dr. Larios had drained 2 cc of blood from the wound and send it for cultures. Cultures has been positive for MRSA sensitivity available in the chart. Wound Care has been following. He worked with physical therapy daily. He had mild DAVID was adequately fluid resuscitated, resolved. He had complained of orthopnea, there was suspicion for cardiomyopathy with a history of methamphetamine abuse, echo was done which showed an EF of 60-65% and RVSP 37. He did not have any signs or symptoms of heart failure. Heart failure was ruled out. He is an active smoker and active meth user hence substance use navigator and Zosyn services were consulted. He has been cleared for discharge and has been ready but he has been very adamant and refusing to go to the [place], case management worked with him has provided resources. His hospital course is uncomplicated he is hemodynamically stable on the day of discharge and his physical exam is as follows: General: Awake and Alert, no acute distress. HEENT: Conjunctiva pink, Sclera clear, Mucus Membranes dry. Neck: Supple without masses and tenderness. Resp: Unlabored. Equal breath sounds bilaterally Heart: Regular rhythm, normal S1 and S2, no rub, murmur or gallop. Abdomen: Soft and non tender no organomegaly. Normal bowel sounds x4 quadrant normoactive. No guarding or rigidity. Extremities: Left leg swelling resolved, erythema improving. Left lateral leg have superficial blisters with clean Dressing. TRAIN OPERATOR: No gross motor or sensory abnormalities. Skin: Warm and Dry. Discharge medications can be found above. Patient is being discharged with the following advice: FOLLOW UP WITH WOUND CARE APPOINTMENT ON 07/03/2025. CONTINUE ANTIBIOTICS ZYVOX FOR 10 MORE DAYS AND THEN STOP. CONTINUE CULTURELLE DAILY. STRICT ABSTINENCE FROM SUBSTANCE USE ESPECIALLY METH. IF CONDITION WORSENS CALL 911 OR GO TO THE NEAREST ER IMMEDIATELY. PATIENT HAS OUTPATIENT WOUND CARE APPOINTMENT ON 07/03/2025 AT 1:30PM WITH [facility] [address] [place] [address] PH: [phone] Echo: Conclusion Normal LV size and wall thickness. Overall systolic function is normal. LVEF is 60-65%. RV is normal size and function. Elevated right heart pressures with an RVSP of 37 mmHg. Left atrium is mildly dilated. Trileaflet AV appears mildly sclerotic without stenosis. No insufficiency. TDS due to poor doppler angles. Mild MV annular calcification without stenosis. Trace regurgitation. TV appears structurally normal with trace regurgitation. Normal pericardium. No effusion. CT: Left lower extremity IMPRESSION: 1. Cellulitis/fasciitis. 2. No definitive intramuscular involvement. No drainable fluid collection/abscess *Problems/Diagnosis: (1) Cellulitis of left leg Status: Acute Total Time Spent on D/C: > 30 Minutes Date of Service: Jun 30, 2025 Billing Provider: MARK FRANCISCO MD, ELIZABETH, KIYA Jun 30, 2025 16:04
== END 2025-06-30 17:09 | disposition home or self-care (01) | DRG 383 ==
LOC: ER 10:01 → ED HOLD 12:48 → EDBEDREQ 13:45 → ORTHO 4S 14:02 → SUR 3N 06-26 11:55
PROVIDERS: ADMIT Family Medicine; ATTEND Family Medicine
DX: L03.116 Cellulitis of left lower limb (principal); N17.0 Acute kidney failure with tubular necrosis; F15.10 Other stimulant abuse, uncomplicated; N39.0 Urinary tract infection, site not specified; F17.210 Nicotine dependence, cigarettes, uncomplicated; Z22.322 Carrier or suspected carrier of Methicillin resistant Staphylococcus aureus; Z59.00 Homelessness unspecified
CPT/HCPCS: 36415; 71045; 73700; 80048; 80053; 80202; 80305; 80320; 81001; 83036; 83605; 83735; 83880; 84100; 84145; 85007; 85025; 85610; 87040; 87070; 87075; 87077; 87081; 87088; 87102; 87186; 93005; 93306; 93971; 96361; 96365; 96375; 97110; 97116; 97162; 97530; 99285; A6212; A6213; A6222; A6223; A6253; A6446; A6449; G0378; J0696; J1644; J2270; J2405; J2543; J3373; J3375; J7030

== ENCOUNTER 2025-09-26 14:03 | Emergency (ER) | payer MEDICAID ==
[~2025-09-26] VITALS: Ht 188 cm; Wt 70.6 kg
[~2025-09-26 14:03] MED LIST changes: -IBUP-864 PO; +LACT1CAP26 PO; +NICO-631 TD; +NO HOME MEDS; -ONDA-243 PO; -SULF1TAB49 PO
[2025-09-26 14:06] VITALS: TEMP 97.4
[2025-09-26 15:43] LABS: MEAN PLATELET VOLUME 6.8 FL (7.4-10.4); RED CELL DISTRIBUTION WIDTH 14.6 % (11.5-14.5)
[2025-09-26 15:56] LABS: CREATININE 0.85 MG/DL (0.60-1.10); TOTAL CARBON DIOXIDE 29.6 MMOL/L (24-32); eCRCL 97 ML/MIN; eGFR > 90 ML/MIN
--- NOTE | 2025-09-26 16:46 | Physician Documentation ---
History of Present Illness ~ Chief Complaint: Leg Pain Stated Complaint: LEG AND HAND INFECTION Time Seen by MD: 14:56 Primary Medical Doctor: Dr Wright HPI 55 year old male with LLE open chronically nonhealing wound which he reports was an infection about 7 weeks ago, and for which he underwent antibiotic therapy. Since that time, it has not fully healed and continues too ooze clear fluid and bother him. He denies fevers, N/V/D. Tetanus witin 5 years: Yes Medication Reconciliation Allergies: Coded Allergies: No Known Allergies (Unverified , 09/26/25) Scheduled Clindamycin Hcl (Clindamycin Hcl), 1 CAP PO TID Lactobacillus Rhamnosus (Culturelle), 1 CAP PO DAILY Nicotine 14 MG Patch* (Habitrol 14 MG Patch*), 1 PATCH TD DAILY Miscellaneous Medications Home Med List (No Home Medications), (Reported) Past Medical History Past Medical History: MRSA Abscess Past Surgical History: noncontributory Patient History: Patient reports no known family medical history. Drug Use: methamphetamine Lives In: Homeless Review of Systems All Other Systems at this time: Reviewed and Negative Physical Exam Vital Signs: RN Vital Signs have been reviewed: Yes, Temperature: 97.4, Source: Temporal, Heart Rate: 81, Respiratory Rate: 20, BP: 120/87, Pulse Oximetry: 100, Weight: 70.600 Oxygen Flow Rate: 0 Physical Exam Gen: no distress HEENT: PERRL, EOMI Pulm: no distress CV: deferred Abd: deferred MSK: no deformity Skin: LLE with large anterior patchy areas of granulation tissue, oozing serous fluid, without induration, warmth, or purulence Psych: unremarkable Progress Results/Orders Results/Orders Orders - SUKHJINDER MORA MD Cult Anaerobic (09/26/25 15:36) Cult (Aer) Routine C&S+Gram St (09/26/25 15:36) Completed Orders - SUKHJINDER MORA MD CMP (09/26/25 15:11) Cbc/Diff (09/26/25 15:11) Regular Diet (09/26/25 Dinner) Clindamycin 300mg/D5w 50ml (Clindamycin (09/26/25 16:05) Vital Signs 09/26/25 09/26/25 09/26/25 09/26/25 14:06 14:15 15:33 17:58 Temp 97.4 Pulse 100 81 80 Resp 16 17 20 20 B/P (MAP) 126/82 120/87 (98) 123/73 Pulse Ox 100 100 100 O2 Flow Rate 0 0 Laboratory Tests Test 09/26/25 15:25 White Blood Count 9.2 Red Blood Count 4.59 L Hemoglobin 13.4 L Hematocrit 40.7 L Mean Corpuscular Volume 88.7 Mean Corpuscular Hemoglobin 29.2 Mean Corpuscular Hemoglobin Concent 32.9 L Red Cell Distribution Width 14.6 H Platelet Count 378 Mean Platelet Volume 6.8 L Neutrophils (%) (Auto) 75.8 H Lymphocytes (%) (Auto) 14.5 L Monocytes (%) (Auto) 7.6 Eosinophils (%) (Auto) 1.6 Basophils (%) (Auto) 0.5 Neutrophils # (Auto) 7.0 Lymphocytes # (Auto) 1.3 Monocytes # (Auto) 0.7 Eosinophils # (Auto) 0.1 Basophils # (Auto) 0.0 CBC Comment Sodium Level 139 Potassium Level 4.2 Chloride Level 106 Carbon Dioxide Level 29.6 Anion Gap 3 L Blood Urea Nitrogen 13 Creatinine 0.85 Estimated GFR/1.73 m2 > 90 BUN/Creatinine Ratio 15.3 Glucose Level 120 H Calcium Level 8.5 Total Bilirubin 0.5 Aspartate Amino Transf (AST/SGOT) 36 Alanine Aminotransferase (ALT/SGPT) 33 Alkaline Phosphatase 49 Total Protein 8.0 Albumin 2.9 L Globulin 5.1 H Albumin/Globulin Ratio 0.6 L Chemistry Comments Microbiology Date/Time Source Procedure Growth Status 09/26/25 14:23 Leg Left Drainage Routine Culture - Preliminary Resulted 09/26/25 14:23 Leg Left Drainage Anaerobic Culture Pending Resulted Medical Decision Making Additional information obtaine: N/A Findings 55 year old male with chronically nonhealing LLE wound which appears more like granulation tissue than cellulitis. Will provide clindamycin, wound care, discharge with return precautions. General Diff Dx:Considerations: Include: Other Knee Diff Dx:Considerations: Include: Other Ankle Diff Dx:Considerations: Include: Other Foot Diff Dx:Considerations: Include: Other Toe Diff Dx:Considerations: Include: Other Additional Comment Ddx = cellulitis, chronic venous stasis dermatitis, granulation tissue Departure Disposition: 01 HOME / SELF CARE / HOMELESS Impression: Primary Impression: Granulation tissue Condition: Stable Discharge Instructions: Wound Care, Adult Referrals: NO PRIMARY CARE PROVIDER (PCP) Prescriptions Clindamycin Hcl (Clindamycin Hcl) 300 Mg Capsule 1 CAP PO TID for 7 Days, #21 CAP Prov: SUKHJINDER MORA MD 09/26/25 Education Educated: Patient Educated regarding: diagnosis, treatment, prognosis, need for follow up Signature Scribe Signature: . Attestation: . SUKHJINDER MORA MD Sep 26, 2025 16:46
[2025-09-26] MEDS: clindamycin 300mg/D5W 50mL 50 ML IV ONE (16:52)
[2025-09-26] MEDS ORDERED: CLIN300C17 PO (16:53)
[2025-09-26 17:58] VITALS: BP 123/73; PULSE 80; RESP 20; O2SAT 100
== END 2025-09-26 18:08 | disposition home or self-care (01) ==
LOC: ER 14:03
DX: L92.9 Granulomatous disorder of the skin and subcutaneous tissue, unspecified (principal); F15.90 Other stimulant use, unspecified, uncomplicated
CPT/HCPCS: 36415; 80053; 85025; 87070; 87075; 96365; 99284; J3490; J7030; A6446